=== PATIENT | male | born 1965 ===

== ENCOUNTER 2019-01-13 18:29 | Emergency (ER) | payer MEDICARE ==
[2019-01-13 18:29] VITALS: BMI 27.0
[2019-01-13 18:39] VITALS: TEMP 97.9
[2019-01-13] MEDS ORDERED: Sodium Chloride 0.9% 1,000 ML IV STA (19:00)
[2019-01-13 19:56] LABS: BASO # 0.1 K/uL (0.0-0.2); BASO % 0.8 % (0.0-2.0); EOS # 0.2 K/uL (0.0-0.7); EOS % 1.8 % (0.0-4.0); HEMOGLOBIN 14.6 g/dL (12.0-18.0); LYMPH # 2.4 K/uL (1.0-4.3); LYMPH % 26.1 % (20.0-40.0); MEAN CELL VOLUME 89.1 fl (80.0-94.0); MEAN CORPUSCULAR HEMOGLOBIN 29.5 pg (27.0-31.0); MEAN CORPUSCULAR HGB CONC 33.1 g/dL (33.0-37.0); MEAN PLATELET VOLUME 7.9 fl (7.2-11.7); MONO % 10.7 % (0.0-10.0); NEUT # 5.6 K/uL (1.8-7.0); NEUT % 60.6 % (50.0-75.0); RBC 4.94 Mil/uL (4.40-5.90); WHITE BLOOD COUNT 9.2 K/uL (4.8-10.8)
[2019-01-13 20:07] LABS: ALB/GLOB RATIO 1.6 (1.0-2.1); ALT/SGPT 71 U/L (21-72); AST/SGOT 64 U/L (17-59); BLOOD UREA NITROGEN 17 mg/dl (9-20); CALCIUM 10.2 mg/dL (8.4-10.2); GFR NON-AFRICAN AMERICAN > 60
--- NOTE | 2019-01-13 20:41 | ED PDOC ---
HPI: General Adult Time Seen by Provider: 01/13/19 19:36 Chief Complaint (Nursing): High Blood Pressure Chief Complaint (Provider): High Blood Pressure History Per: Patient History/Exam Limitations: no limitations Onset/Duration Of Symptoms: Intermittent Episodes Additional Complaint(s): 53 year old male with a history of cervical injury, hypertension (on no medications), and lower back pain presents to the ED with neck pain, headaches, dizziness, and elevated blood pressure. Patient checked his blood pressure on his own machine and found it to be 150/96, which prompted ED visit. He states intermittent blurry vision an headaches that have been "on and off for some time now". Patient denies any weakness, nausea, vomiting, abdominal pain, chest pain, and shortness of breath. Sometimes his headaches cause right eye pain. At present, he states he came to hospital because of elevated blood pressure and headache. Yesterday he took ibuprofen for pain. Patient usually takes Flexeril and Tramadol fir neck pain but elected to stop taking it after diagnose with hypertension. Patient saw his PMD a month ago, but did not express having all these complaints. PMD: Evan Flores Past Medical History Reviewed: Historical Data, Nursing Documentation, Vital Signs Vital Signs: Last Vital Signs Temp 97.9 F 01/13/19 18:37 Pulse 80 01/13/19 18:37 Resp 16 01/13/19 18:37 BP 135/93 H 01/13/19 18:37 Pulse Ox 100 01/13/19 18:37 Primary Care Provider: Evan Flores - Medical History PMH: Back Problems (lower), HTN Other PMH: cervical injury - Family History Family History: States: Unknown Family Hx - Home Medications Home Medications: Ambulatory Orders Medication Instructions Recorded Amitriptyline [Elavil] 10 mg PO DAILY 11/16/18 Cyclobenzaprine [Flexeril] 5 mg PO DAILY 11/16/18 Ibuprofen [Motrin Tab] 800 mg PO DAILY 11/16/18 Tramadol HCl [Ultram] 50 mg PO DAILY 11/16/18 - Allergies Allergies/Adverse Reactions: Allergies Allergy/AdvReac Type Severity Reaction Status Date / Time No Known Allergies Allergy Verified 01/13/19 18:40 Review of Systems ROS Statement: Except As Marked, All Systems Reviewed And Found Negative Eyes: Positive for: Pain (right) Cardiovascular: Negative for: Chest Pain Respiratory: Negative for: Shortness of Breath Gastrointestinal: Negative for: Nausea, Vomiting, Abdominal Pain Musculoskeletal: Positive for: Neck Pain Neurological: Positive for: Headache, Dizziness Physical Exam - Reviewed Nursing Documentation Reviewed: Yes Vital Signs Reviewed: Yes - Physical Exam Appears: Positive for: No Acute Distress Head Exam: Positive for: ATRAUMATIC, NORMOCEPHALIC Skin: Positive for: Normal Color, Warm, Dry Eye Exam: Positive for: Normal appearance, EOMI, PERRL Neck: Positive for: Normal, Painless ROM, Supple Cardiovascular/Chest: Positive for: Regular Rate, Rhythm. Negative for: Murmur Respiratory: Positive for: Normal Breath Sounds. 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 II-XII (intact), Other (strength equal bilaterally ) - Laboratory Results Result Diagrams: 01/13/19 19:50 01/13/19 19:50 Lab Results: Total Bilirubin 0.5 mg/dl (0.2-1.3) 01/13/19 19:50 AST 64 U/L (17-59) H 01/13/19 19:50 ALT 71 U/L (21-72) 01/13/19 19:50 Alkaline Phosphatase 58 U/L (38-126) 01/13/19 19:50 Total Protein 8.3 G/DL (6.3-8.2) H 01/13/19 19:50 Albumin 5.0 g/dL (3.5-5.0) 01/13/19 19:50 Globulin 3.2 gm/dL (2.2-3.9) 01/13/19 19:50 Albumin/Globulin Ratio 1.6 (1.0-2.1) 01/13/19 19:50 - ECG O2 Sat by Pulse Oximetry: 100 (RA) Pulse Ox Interpretation: Normal Medical Decision Making Medical Decision Making: Time: 1899 workup for headache and dizziness. Plan: --CT head --Medications for pain --NS 1 liter --Reevaluation Time: 2003 FINDINGS: BRAIN: No acute intraparenchymal hemorrhage. No mass lesion. No CT evidence for acute territorial infarct. No midline shift or extra-axial collections. VENTRICLES: No hydrocephalus. ORBITS: The orbits are unremarkable. SINUSES AND MASTOIDS: The paranasal sinuses and mastoid air cells are clear. BONES: No fracture. SOFT TISSUES: Unremarkable. IMPRESSION: No acute intracranial abnormality. Time: 2128 --On reevaluation, patient states he feels better, headache and neck pain improved. Labs reviewed by provider, labs unremarkable. CT negative. Clinical findings discussed with patient. No further workup needed in ED. Patient is stable for discharge home and advised to follow up with PMD within a week for blood pressure monitoring. He will be monitoring with machine and instructed to keep a log so he can show PMD. Patient sates understanding and agreement to plan, return to ED precautions given. b/p: 114/63 upon D/C Scribe Attestation: Documented by Nell León acting as a scribe for Kymberly Roy APN. Provider Scribe Attestation: All medical record entries made by the Scribe were at my direction and pers onally dictated by me. I have reviewed the chart and agree that the record accurately reflects my personal performance of the history, physical exam, medical decision making, and the department course for this patient. I have also personally directed, reviewed, and agree with the discharge instructions and disposition. Disposition - Clinical Impression Clinical Impression: Neck pain, Headache - Patient ED Disposition Is Patient to be Admitted: No Counseled Patient/Family Regarding: Diagnosis - Disposition Disposition: Routine/Home Disposition Time: 21:21 Condition: IMPROVED Instructions: Neck Pain, Headache, Adult (DC) Print Language: MONGOLIAN - POA Present On Arrival: None
[2019-01-13 21:36] VITALS: BP 114/63; PULSE 56; RESP 18
[2019-01-14 00:30] VITALS: O2SAT 100
--- NOTE | 2019-01-14 14:02 | CT ---
Date of service: 01/13/2019 PROCEDURE: CT HEAD WITHOUT CONTRAST. HISTORY: headache/ dizziness COMPARISON: None available. TECHNIQUE: Axial computed tomography images were obtained through the head/brain without intravenous contrast. Supplemental Coronal and Sagittal projections created and reviewed. Radiation dose: Total exam DLP = 830.86 mGy-cm. This CT exam was performed using one or more of the following dose reduction techniques: Automated exposure control, adjustment of the mA and/or kV according to patient size, and/or use of iterative reconstruction technique. FINDINGS: HEMORRHAGE: No intracranial hemorrhage. BRAIN: No mass effect or edema. No atrophy or chronic microvascular ischemic changes. VENTRICLES: Unremarkable. No hydrocephalus. CALVARIUM: Unremarkable. PARANASAL SINUSES: Unremarkable as visualized. No significant inflammatory changes. MASTOID AIR CELLS: Unremarkable as visualized. No inflammatory changes. OTHER FINDINGS: None. IMPRESSION: No acute intracranial abnormalities. No significant findings to account for the clinical presentation. Concordant findings (preliminary report) provided by [facility].
== END 2019-01-13 21:35 | disposition home or self-care (01) ==
LOC: H.ER 18:29
DX: R51 Headache (principal); M54.2 Cervicalgia; I10 Essential (primary) hypertension
CPT/HCPCS: 70450; 80053; 85025; 96374; 96375; 99285; J1885; J2765; J7030